=== PATIENT | female | born 1955 | race Caucasian/White ===

== ENCOUNTER → 2018-04-01 | Outpatient (CLI) | payer OTHER ==
[~2018-04-01] MED LIST: 5-HY50CA4 PO; CHOL10005 PO; FLAX100030 PO; LACT1CAP6 PO; MILK140C3 PO; MULT-977 PO; OMEG500C5 PO
--- NOTE | 2018-04-02 08:36 | RADIOLOGY IMAGING REPORT ---
FACILITY: [facility] PATIENT NAME: ALLIE WALKER : [id number] MR: [id number] V: [id number] EXAM DATE: ORDERING PHYSICIAN: KESHIA WASHINGTON TECHNOLOGIST: Diane Shea PROCEDURE:BILATERAL DIGITAL SCREENING MAMMOGRAM WITH CAD ASSISTED INTERPRETATION & 3D TOMOSYNTHESIS COMPARISON:Prior mammograms 03/11/17, 06/14/15, 02/04/14, 01/08/13, 12/13/11. INDICATIONS:screening FINDINGS: Mildly heterogeneous fibroglandular tissue is seen throughout the breasts. The parenchymal pattern has remained stable allowing for difference in mammographic technique & patient positioning. There is no evidence of malignant appearing mass, malignant appearing calcifications or other secondary sign of malignancy in either breast. DIAGNOSTIC CATEGORY 1--NEGATIVE. RECOMMENDATIONS: ROUTINE MAMMOGRAM AND CLINICAL EVALUATION. IMPRESSION: BIRADS 1: Negative No significant abnormality is seen. Dictated by: Brittani Christianson M.D. on 04/01/2018 at 17:26 Transcribed by: KAR on 04/02/2018 at 8:14 Approved by: Brittani Christianson M.D. on 04/02/2018 at 8:36 [facility]
== END ==
LOC: MAMO 02:25
PROVIDERS: ATTEND Physician Assistant
DX: Z12.31 Encounter for screening mammogram for malignant neoplasm of breast (principal)
CPT/HCPCS: 77063; 77067